=== PATIENT | female | born 1975 | race Caucasian/White ===

== ENCOUNTER 2020-06-12 16:55 | Emergency (ER) | payer BC ==
[~2020-06-12] VITALS: Ht 170.2 cm; Wt 72.6 kg
[2020-06-12] MEDS ORDERED: BENTYL 10 MG CA10 M1 PO (17:04)
[2020-06-12] MEDS ORDERED: MEGA BIOTIN10000 MCG PO (17:04)
[2020-06-12] MEDS ORDERED: NORFLEX100 MG PO (17:55)
[2020-06-12] MEDS ORDERED: TRAMADOL 50 MG50 MG PO (17:55)
[2020-06-12] MEDS ORDERED: NAPROSYN500 MG PO (17:55)
[2020-06-12 18:26] VITALS: BP 110/68
== END 2020-06-12 18:26 | disposition home or self-care (01) ==
LOC: ER 16:55
DX: S39.012A Strain of muscle, fascia and tendon of lower back, initial encounter (principal); G89.29 Other chronic pain; M54.9 Dorsalgia, unspecified; Z79.2 Long term (current) use of antibiotics; Z88.0 Allergy status to penicillin; X50.1XXA Overexertion from prolonged static or awkward postures, initial encounter; Y93.89 Activity, other specified; Y92.89 Other specified places as the place of occurrence of the external cause; Y99.8 Other external cause status

== ENCOUNTER 2021-01-30 15:55 | Emergency (ER) | payer OTHER ==
[~2021-01-30] VITALS: Ht 170.2 cm; Wt 72.6 kg
[~2021-01-30 15:55] MED LIST: BENTYL 10 MG CA10 M1 PO; MEGA BIOTIN10000 MCG PO; NAPROSYN500 MG PO; NORFLEX100 MG PO; TRAMADOL 50 MG50 MG PO
[2021-01-30 16:47] LABS: ABSOLUTE NEUTROPHILS 2.8 thou/uL (1.4-8.2); BASOPHILS 0.7 % (0.0-2.0); EOSINOPHILS 1.2 % (0.0-3.0); HEMATOCRIT 29.2 % (37.0-47.0); HEMOGLOBIN 9.8 gm/dL (12.0-15.0); LYMPHOCYTES 31.3 % (24.0-44.0); MCH 26.3 pg (26.0-34.0); MCHC 33.4 g/dL (28.0-37.0); MCV 78.6 fL (80.0-100.0); MONOCYTES 12.1 % (1.0-8.0); PLATELET COUNT 176 thou/uL (150-400); POLYS 54.7 % (36.0-66.0); RBC 3.71 mil/uL (4.20-5.00); RDW 15.4 % (10.5-14.5); WBC 5.2 thou/uL (4.0-11.0)
[2021-01-30 16:59] LABS: ANION GAP 7 mmol/L (7-16); BUN 14 mg/dL (7-18); CALCIUM 8.5 mg/dL (8.5-10.1); CHLORIDE 104 mmol/L (98-107); CO2 30 mmol/L (21-32); CREATININE 0.7 mg/dL (0.6-1.0); GLUCOSE 107 mg/dL (74-106); POTASSIUM 3.3 mmol/L (3.5-5.1); SODIUM 141 mmol/L (136-145)
[2021-01-30 17:08] LABS: ALBUMIN 3.5 g/dL (3.4-5.0); SGOT 23 U/L (15-37); SGPT 21 U/L (14-59); TOTAL BILIRUBIN 0.3 mg/dL (0.2-1.0); TOTAL PROTEIN 7.1 g/dL (6.4-8.2); TROPONIN-I <0.06 ng/mL (<0.06)
[2021-01-30] MEDS ORDERED: ZOFRAN ODT4 MG PO (20:00)
[2021-01-30 20:27] VITALS: BP 126/73
--- NOTE | 2021-01-31 07:15 | EKG ---
[address] [place] [address] ELECTROCARDIOGRAM REPORT Name: NATHALIE GARCIA Room #: DEP HIMA Larsen#: [id number] Admission: 01/30/21 Attend Phys: Discharge: 01/30/21 Date of : 71 Report #: [id number] [facility] ED Test Date: 2021-01-30 Test Time: 16:14:56 Pat Name: NATHALIE GARCIA Department: Room: Gender: F [employer]ining [employer] Operator: RHINA : 1975 Requested By: Baltazar Mcgrath Order Number: [id number] MD: Jean-Paul Corado Measurements Intervals [place] Rate: 85 P: 43 IA: 162 QRS: 37 QRSD: 78 T: 36 QT: 384 QTc: 457 Interpretive Statements Sinus rhythm Baseline wander in lead(s) V1,V2 No previous ECG available for comparison Electronically Signed On 01-31-2021 7:15:41 CDT by Jean-Paul Corado [email or web address] <ELECTRONICALLY SIGNED> By: Jean-Paul Corado MD, [facility] 01/31/21 0715 1614 1614 Jean-Paul Corado MD, FACC /EPI
== END 2021-01-30 20:38 | disposition home or self-care (01) ==
LOC: ER 15:55
PROVIDERS: Emergency Medicine
DX: U07.1 COVID-19 (principal); J12.89 Other viral pneumonia; M54.89 Other dorsalgia; Z79.1 Long term (current) use of non-steroidal anti-inflammatories (NSAID); Z79.899 Other long term (current) drug therapy; Z88.0 Allergy status to penicillin